=== PATIENT | female | born 1940 | race Caucasian/White ===

== ENCOUNTER 2021-08-24 04:41 | Inpatient (IN) | payer OTHER ==
[2021-08-24] VITALS (47 sets, daily range): BP systolic 42–143; BP diastolic 25–73
[~2021-08-24] VITALS: Ht 167.6 cm; Wt 125.0 kg
--- NOTE | ~2021-08-24 | EMS ---
[address] [address] EMS Patient Care Report Name: GISSELLE STANLEY Room #: 245-P ADM IN M.R.#: [id number] Admission: 08/24/21 Attend Phys: Ernestina Roberts MD Discharge: Date of : 42 Report #: [id number] THIS REPORT FOR: //name// Report Transmitted: 08/27/2021 12:34 EMS Care Summary [place], [place]/[facility] Incident [id number] @ 08/24/2021 04:04 Incident Location [address] [place] [address] Patient GISSELLE STANLEY Female, 81 Years 1940 Patient Address [address] [place], [place] [id number] Patient History Hypertension (HTN),Anemia,Chronic Respiratory Failure, Patient Allergies No known allergies, Patient Medications Sertraline, Januvia, Cholecalciferol, Baclofen, Tylenol, Eliquis, Miralax, Tramadol, Chief Complaint Vomiting Blood Disposition Transported Lights/[place] Dispatch Reason Hemorrhage/Laceration Transported To [facility] Narrative Nurse at care center stated they were doing rounds and found Pt in bed with black tarry vomit and blood clots on Pt hospital gown , face lips and hands [address] [address] EMS Patient Care Report Name: GISSELLE STANLEY Room #: 245-P [facility] IN M.R.#: [id number] Admission: 08/24/21 Attend Phys: Ernestina Roberts MD Discharge: Date of : 42 Report #: [id number] which started around 0300. Nurse stated that Pt is a GCS 15 but now Pt is a GCS 08. Nurse denied any issues with Pt prior to going to bed and Pt had no signs of distress noted either. Pt is a GCS 08 and is not alert. Pt found laying in bed with black vomit around Pt lips , under fingernails and Pt is with a very bad odor coming from Pt mouth. Pt is with pale, wet and cool skin ,and with a GCS 08 which Pt is normally a GCS per Nurse. EMS is unable to get a I,V on Pt and Pt placed in shock position due to low blood pressure. Pt is with abdominal extension and pain , firmness and guarding noted in all 4 quad area of abdominal area Pt had no other vomiting of blood during transport to ER and Pt is with no other changes noted on eval by EMS. Pt received by RN in ER. Initial Vitals @04:13P: 118,R: 22,BP: 62/41,Pain: 10/10,GCS: 8,Glucose: 110,SpO2: 88,Revised Trauma: 8, @04:23P: 116,R: 22,BP: 68/41,Pain: 10/10,GCS: 8,SpO2: 100,Revised Trauma: 8, @04:30P: 118,R: 20,BP: 71/43,Pain: 10/10,GCS: 8,SpO2: 100,Revised Trauma: 8, Assessments @04:11MENTAL:Confused,Combative,Hallucinations,SKIN:Diaphoresis,Cold,Pale,HEENT: Eyes: Right: Constricted,Eyes: Left: Constricted,Head/Face: No Abnormalities,Neck/Airway: No Abnormalities,LUNG SOUNDS:Right Lower: Tenderness,Right Lower: Guarding,Left Lower: Guarding,Right Lower: Distension,Left Lower: Distension,Left Lower: Tenderness,Right Upper: Tenderness,General: Other,Left Upper: Guarding,Left Upper: Tenderness,Left Upper: Distension,Right Upper: Guarding,Right Upper: Distension,General: Vomiting,General: Nausea,ABDOMEN:Right Lower: Tenderness,Right Lower: Guarding,Left Lower: Guarding,Right Lower: Distension,Left Lower: Distension,Left Lower: Tenderness,Right Upper: Tenderness,General: Other,Left Upper: Guarding,Left Upper: Tenderness,Left Upper: Distension,Right Upper: Guarding,Right Upper: Distension,General: Vomiting,General: Nausea,PELVIS//GI:No Abnormalities,EXTREMITIES:Capillary Refill: Right Upper: 4 Sec,Left Arm: No Abnormalities,Right Arm: No Abnormalities,Left Leg: No Abnormalities,Right Leg: No Abnormalities,PULSE:Radial: 1+ Thready,NEURO:No Abnormalities,@04:35MENTAL:Confused,Combative,SKIN:Cold,Pale,Diaphoresis,HEENT:E yes: Right: Constricted,Eyes: Left: Constricted,Head/Face: No Abnormalities,Neck/Airway: No Abnormalities,LUNG SOUNDS:General: Nausea,General: Vomiting,Left Upper: Tenderness,Right Upper: Tenderness,Left Upper: Distension,Right Upper: Distension,Left Upper: Guarding,Right Upper: Guarding,Right Lower: Guarding,Right Lower: Distension,Left Lower: Guarding,Left Lower: Distension,Left Lower: Tenderness,Right Lower: Tenderness,ABDOMEN:General: Nausea,General: Vomiting,Left Upper: [facility] [address] [place] [address] EMS Patient Care Report Name: GISSELLE STANLEY Room #: 245-P ADM IN M.R.#: [id number] Admission: 08/24/21 Attend Phys: Ernestina Roberts MD Discharge: Date of : 42 Report #: [id number] Tenderness,Right Upper: Tenderness,Left Upper: Distension,Right Upper: Distension,Left Upper: Guarding,Right Upper: Guarding,Right Lower: Guarding,Right Lower: Distension,Left Lower: Guarding,Left Lower: Distension,Left Lower: Tenderness,Right Lower: Tenderness,PELVIS//GI:No Abnormalities,EXTREMITIES:Capillary Refill: Left Upper: 4 Sec,Left Arm: No Abnormalities,Right Arm: No Abnormalities,Left Leg: No Abnormalities,Right Leg: No Abnormalities,PULSE:Radial: 1+ Thready,NEURO:No Abnormalities, Impression Abdominal Pain Procedures @04:11ALS AssessmentResponse: UnchangedSucceeded@04:13Oxygen FlowRate: 15 Device: Nasal Cannula (NC) Response: UnchangedSucceeded@04:143-Lead ECGResponse: UnchangedSucceeded@04:15TrendelenburgResponse: UnchangedSucceeded@04:19Normal Saline (.9% NaCl) 0cc (18 ga) Site: Antecubital-LeftResponse: UnchangedFailed@04:25Normal Saline (.9% NaCl) 0cc (20 ga) Site: Hand-RightResponse: UnchangedFailed@04:23General CommentsResponse: Unchanged Timeline 04:02,Call Received 04:02,Dispatch Notified 04:04,Dispatched 04:04,En Route 04:09,On Scene 04:11,At Patient 04:11,ALS Assessment,Response: UnchangedSucceeded, 04:13,Oxygen FlowRate: 15 Device: Nasal Cannula (NC) Response: UnchangedSucceeded, 04:13,BP: 62/41 M,PULSE: 118,RR: 22 R,SPO2: 88 Ox,ETCO2: ,B,PAIN: 10,GCS: 8, 04:14,3-Lead ECG,Response: UnchangedSucceeded, 04:15,Trendelenburg,Response: UnchangedSucceeded, 04:19,Normal Saline (.9% NaCl) 0cc 18 ga Site: Antecubital-Left,Response: UnchangedFailed, 04:23,General Comments,Response: Unchanged 04:23,BP: 68/41 M,PULSE: 116,RR: 22 R,SPO2: 100 Ox,ETCO2: ,BG: ,PAIN: 10,GCS: 8, 04:25,Normal Saline (.9% NaCl) 0cc 20 ga Site: Hand-Right,Response: UnchangedFailed, 04:29,Depart Scene 04:30,BP: 71/43 M,PULSE: 118,RR: 20 R,SPO2: 100 Ox,ETCO2: ,BG: ,PAIN: 10,GCS: 8, 04:36,At Destination 04:53,Call Closed [facility] [address] [place] [address] EMS Patient Care Report Name: GISSELLE STANLEY Room #: 245-P [facility] IN M.R.#: [id number] Admission: 08/24/21 Attend Phys: Ernestina Roberts MD Discharge: Date of : 42 Report #: [id number] Disclaimer [email or web address] Copyright 2020 [employer] This EMS Care Summary contains data elements from the applicable legal record (which may be displayed differently). It is designed to provide pertinent information for the following purposes: continuity of care, clinical quality, and state data reporting. The complete legal record is available to ED staff and administrators of the receiving hospital in [employer] Patient Tracker. All data is provided "as is."
[2021-08-24 05:28] LABS: PLATELET COUNT 184 thou/uL (150-400)
[2021-08-24 05:29] LABS: MCH 29.5 pg (26.0-34.0); MCHC 32.5 g/dL (28.0-37.0); MCV 90.5 fL (80.0-100.0); RDW 19.8 % (10.5-14.5); WBC 23.8 thou/uL (4.0-11.0)
[2021-08-24] MEDS ORDERED: LAC-HYDRIN FIV226 GM (05:30)
[2021-08-24 05:31] LABS: HEMOGLOBIN 4.4 gm/dL (12.0-15.0)
[2021-08-24 05:32] LABS: HEMATOCRIT 13.6 % (37.0-47.0)
[2021-08-24] MEDS ORDERED: BACLOFEN5 MG PO (05:34)
[2021-08-24] MEDS ORDERED: D3-501250 MCG PO (05:35)
[2021-08-24] MEDS ORDERED: ELIQUIS5 MG PO (05:37)
[2021-08-24 05:46] LABS: ALBUMIN 1.4 g/dL (3.4-5.0); CALCIUM 7.5 mg/dL (8.5-10.1); CREATININE 1.5 mg/dL (0.6-1.0); POTASSIUM 5.1 mmol/L (3.5-5.1); TOTAL BILIRUBIN 0.3 mg/dL (0.2-1.0)
[2021-08-24] MEDS ORDERED: VITAMIN D250 MCG PO (05:50)
[2021-08-24] MEDS ORDERED: JUVEN PACKET1 EAC1 PO (05:51)
[2021-08-24 05:52] LABS: APTT 24.2 Seconds (24.5-32.8); INR 1.41; PROTIME 15.1 Seconds (10.5-12.1)
[2021-08-24 06:46] LABS: BE(vivo) -12.3 mmol/L (-2 to +3); HCO3 12.4 mmol/L (22.0-26.0); PO2 115.9 mmHg (80.0-100.0); pH 7.347 (7.360-7.450); sO2 98.1 % (92.0-98.0)
[2021-08-24 06:47] LABS: PCO2 23.1 mmHg (35.0-45.0)
--- NOTE | 2021-08-24 07:30 | NUR ---
MADE MULTIPLE ATTEMPTS TO CALL PATIENTS FACILITY TO OBTAIN A CODE STATUS, THE LINE WAS BUSY ON ALL 8 PHONE CALLS. UNABLE TO GET IN TOUCH WITH FACILITY, LOCATED PATIENTS CODE STATUS IN PAPERWORK, NO OTHER SIGNIFICANT MEDICAL HISTORY NOTED.
--- NOTE | 2021-08-24 07:35 | EKG ---
[address] [address] ELECTROCARDIOGRAM REPORT Name: GISSELLE STANLEY Room #: REG SETH Solis#: [id number] Admission: 08/24/21 Attend Phys: Discharge: Date of : 42 Report #: [id number] [facility] ED Test Date: 2021-08-24 Test Time: 04:57:20 Pat Name: GISSELLE STANLEY Department: Room: Gender: F Electrician Aircraft: TANYA : 1940 Requested By: Mango Brown Order Number: [id number] MD: Neymar Munoz Measurements Intervals [place] Rate: 106 P: TX: QRS: 17 QRSD: 97 T: 106 QT: 353 QTc: 469 Interpretive Statements Artfact, NSR Nonspecific repol abnormality, diffuse leads No previous ECG available for comparison Electronically Signed On 08-24-2021 7:35:15 CDT by Neymar Munoz [email or web address] <ELECTRONICALLY SIGNED> By: Neymar Munoz MD, [facility] 08/24/21 0735 [id number] Neymar Munoz MD, FACC /EPI
[2021-08-24 08:57] LABS: URINE BILIRUBIN NEGATIVE (Negative); URINE BLOOD 1+ (Negative); URINE CLARITY CLOUDY; URINE COLOR YELLOW; URINE GLUCOSE-RANDOM* NEGATIVE (Negative); URINE KETONES NEGATIVE (Negative); URINE LEUKOCYTES-REFLEX NEGATIVE (Negative); URINE NITRITE-REFLEX NEGATIVE (Negative); URINE PROTEIN (DIPSTICK) NEGATIVE (Negative); URINE SPECIFIC GRAVITY >= 1.030 (1.005-1.035); URINE UROBILINOGEN 0.2 E.U./dl (0.2-1.0)
[2021-08-24 09:15] LABS: BASOPHILS 0.9 % (0.0-2.0); HEMATOCRIT 32.4 % (37.0-47.0); RDW 15.3 % (10.5-14.5)
[2021-08-24 09:15] LABS: BACTERIA-REFLEX 1-9 Few /HPF (None Seen); CASTS None Seen /LPF (None Seen); CRYSTALS None Seen /LPF (None Seen); SQUAMOUS >10 Many /LPF (0-3); URINE RBC 3-10 Few /HPF (NONE SEEN); URINE WBC-REFLEX 6-15 Few /HPF (0-5)
[2021-08-24 09:17] LABS: ABSOLUTE NEUTROPHILS 15.9 thou/uL (1.4-8.2); EOSINOPHILS 0.2 % (0.0-3.0); MCH 30.1 pg (26.0-34.0); MCV 91.2 fL (80.0-100.0); MONOCYTES 6.2 % (1.0-8.0); PLATELET COUNT 134 thou/uL (150-400); POLYS 77.7 % (36.0-66.0); RBC 3.55 mil/uL (4.20-5.00); WBC 20.4 thou/uL (4.0-11.0)
[2021-08-24 09:24] LABS: HEMOGLOBIN 10.7 gm/dL (12.0-15.0)
[2021-08-24 09:40] LABS: ABSOLUTE NEUTROPHILS 17.4 thou/uL (1.4-8.2); ANISOCYTOSIS 2+; METAMYELOCYTES 3 %; MYELOCYTES 1 %; NUCLEATED RBCS 9 /100WBC; PLATELET ESTIMATE NORMAL
[2021-08-24 09:48] LABS: POLYCHROMASIA 1+
--- NOTE | 2021-08-24 10:46 | NUR ---
ETOMIDATE 25MG GIVEN IV @ 1044 SUCCS 100MG GIVEN IV @ 1045 ETTUBE 7.0 PLACED 25 @ TEETH @1046
--- NOTE | 2021-08-24 12:15 | NUR ---
DR. CAMPA (GI) WAS ABLE TO GET INTO CONTACT WITH LIONEL GRAY PT DPOA TO GO OVER CARE PLAN AND OBTAIN CONSTENT FOR EGD. DURING THIS CONVERSATION IT WAS NOTED THAT PT IS A JEHOVAHS WITNESS THEREFORE BLOOD PRODUCTS ARE AGAINST HER WISHES. AT THIS TIME PT HAD ALREADY RECEIVED X4 UNITS FOR LIFE SAVING INTERVENTION PT HEMO WAS 4.4 UPON ARRIVAL AND PT WAS ALERT BUT NOT ABLE TO EXPRESS WISHES REGARDING BLOOD PRODUCTS AND OR CHRISTIANITY BELIEFS. ATTEMPTS TO CALL SNF MULTIPLE TIMES FOR FURTHER INFORMATION WAS UNSUCCESSFUL. AT THIS TIME PER ED PROVIDERS DR. VALLADARES AND DR. BARRERA CONSENT WAS DUAL SIGNED AND BLOOD ADMINISTERED AGAIN PRIORLY STATED FOR LIFE SAVING INTERVENTION. PT DPOA VERBALIZED UNDERSTANDING. PT WILL NOT RECEIVE ANYMORE BLOOD PRODUCTS NOW THAT WISHES ARE KNOWN. ED PROVIDER HAS ALSO SPOKEN WITH PT DAUGHTER AND HAS EXPLAINED PT CONDITION UPON ARRIVAL AND CARE PLAN THAT WAS TAKEN FOR LIFE SAVING INTERVENTION INCLUDING THE ADMINISTRATION OF BLOOD PRODUCTS. PT DAUGHTER ALSO VERBALIZED UNDERSTANDING. ED PROVIDER EXPLAINED THAT NO MORE BLOOD PRODUCTS WOULD BE GIVEN NOW THAT WISHES ARE KNOWN, PT DAUGHTER VERBALIZED UNDERSTANDING. PT DAUGHTER ENCOURAGED TO CALL WITH ANY CONCERNS OR QUESTIONS. PT DAUGHTER AWARE OF SCHEDULED EGD PT DAUGHTER NOTED SHE WILL COME TO ICU AFTER PROCEDURE.
[2021-08-24 12:18] LABS: HEMATOCRIT 33.5 % (37.0-47.0); HEMOGLOBIN 11.2 gm/dL (12.0-15.0)
[2021-08-24 12:18] LABS: HCO3 18.8 mmol/L (22.0-26.0); PCO2 38.5 mmHg (35.0-45.0); PO2 132.1 mmHg (80.0-100.0); sO2 98.4 % (92.0-98.0)
[2021-08-24 12:19] LABS: pH 7.306 (7.360-7.450)
--- NOTE | 2021-08-24 13:26 | NUR ---
DR JUD CAMPA- [phone]
--- NOTE | 2021-08-24 17:14 | NUR ---
PATIENT SLOWLY PROGRESSING TOWARDS THE PLAN OF CARE EVIDENCED BY DECREASED OXYGENATION NEEDS. EGD DONE AND RESULTS RELAYED TO LIONEL GRAY ([facility]) BY DR. CAMPA. LIONEL GRAY WAS TOLD ABOUT VISITOR POLICY AND POLICY REGARDING GIVING INFORMATION OVER THE PHONE.
[2021-08-25] VITALS (101 sets, daily range): BP systolic 70–139; BP diastolic 19–52
--- NOTE | 2021-08-25 07:00 | NUR ---
Oxygenation optimal with current vent settings, sats 100%.
--- NOTE | 2021-08-25 07:00 | NUR ---
Assumed patient care at 1900. Patient sedated on the vent. Progressing slowly towards outcome goals. Fentanyl and Versed for sedation. Levo at 30 mcg/min quadruple strength. BP map 50-55, SBP upper 80's- 110's. NS 500 cc fluid bolus x 2. Urine output 475. OG LIS 50 cc dark red drainage. Bed in lateral rotation. Blood culture growing gram + cocci, reported to Sierra Zavala SOAP DRIER OPERATOR, no new orders. No bowel movement.
[2021-08-25 09:29] LABS: HEMATOCRIT 23.1 % (37.0-47.0); MCH 30.4 pg (26.0-34.0); MCV 89.4 fL (80.0-100.0); RBC 2.59 mil/uL (4.20-5.00); WBC 16.9 thou/uL (4.0-11.0)
[2021-08-25 09:37] LABS: HEMOGLOBIN 7.9 gm/dL (12.0-15.0)
[2021-08-25 09:39] LABS: CALCIUM 6.5 mg/dL (8.5-10.1); CREATININE 1.1 mg/dL (0.6-1.0); POTASSIUM 3.4 mmol/L (3.5-5.1)
--- NOTE | 2021-08-25 12:59 | NUR ---
A #6F TRIPLE LUMEN CENTRAL LINE WAS PLACED AFTER A BEDSIDE TIMEOUT WAS COMPLETED PER POLICY. THE 25CM LINE WAS ADVANCED TO 6CM EXTERNAL WITHOUT DIFFICULTY. A STAT CHEST XRAY WAS ORDERED FOR LINE CONFIRMATION.
[2021-08-25 14:01] LABS: HEMATOCRIT 22.7 % (37.0-47.0); HEMOGLOBIN 7.5 gm/dL (12.0-15.0)
--- NOTE | 2021-08-25 20:29 | NUR ---
PT IS NOT PROGRESSING TOWARDS THE PLAN OF CARE EVIDENCED BY CONTINUED DEPENDENCE ON VENTILATOR SUPPORT THIS RN SPOKE TO LIONEL GRAY FROM 1708 - 171 AND UPDATED HIM ON THE PT'S CONDITIONS AND PLAN OF CARE. FAMILY WANTS NO BLOOD PRODUCTS RELATED TO RELEGION. DR. LI SPOKE TO FAMILY ABOUT BENEFITS AND RISK OF NOT RECEIVING BLOOD AND ABOUT THE PATIENTS CONDITIONS PER HER REPORT.
[2021-08-26] VITALS (80 sets, daily range): BP systolic 81–151; BP diastolic 29–59
[2021-08-26 04:56] LABS: ALBUMIN 1.7 g/dL (3.4-5.0); CALCIUM 6.4 mg/dL (8.5-10.1); CREATININE 1.1 mg/dL (0.6-1.0); POTASSIUM 3.6 mmol/L (3.5-5.1); TOTAL BILIRUBIN 0.6 mg/dL (0.2-1.0); TOTAL PROTEIN 4.2 g/dL (6.4-8.2)
[2021-08-26 05:15] LABS: ABSOLUTE NEUTROPHILS 10.7 thou/uL (1.4-8.2); BASOPHILS 0.7 % (0.0-2.0); EOSINOPHILS 0.7 % (0.0-3.0); HEMATOCRIT 21.4 % (37.0-47.0); HEMOGLOBIN 7.2 gm/dL (12.0-15.0); LYMPHOCYTES 19.5 % (24.0-44.0); MCH 30.6 pg (26.0-34.0); MCHC 33.7 g/dL (28.0-37.0); MONOCYTES 5.2 % (1.0-8.0); PLATELET COUNT 81 thou/uL (150-400); POLYS 73.9 % (36.0-66.0); RBC 2.35 mil/uL (4.20-5.00); RDW 16.1 % (10.5-14.5); WBC 14.4 thou/uL (4.0-11.0)
[2021-08-26 05:19] LABS: BE(vivo) -10.7 mmol/L (-2 to +3); PCO2 32.7 mmHg (35.0-45.0); PO2 107.7 mmHg (80.0-100.0); sO2 97.4 % (92.0-98.0)
--- NOTE | 2021-08-26 08:16 | NUR ---
RN SPOKE W/ THIS MORNING REGARDING PROGRESS OF THE PT, PT'S HEMOGLOBIN LEVEL DECREASING AT THIS TIME 7.5 > 7.2, NO APPARENT CHANGE IN OG TUBE DRAINAGE, WELL BM. FURTHER EVALUATE HEMOGLOBIN LEVEL AT 1500 THIS AFTERNOON. IF NEEDED BE, EGD WILL FOLLOW BUT NO INDICATION AT THIS TIME PER , PROTONIX GTT TO CONTINUE FOR NOW, RN CONTINUING TO MONITOR. VASOPRESSIN INCREASED FROM 0.02 TO 0.04, LEVO QUAD RUNNIGN AT FULL THROTTLE.
[2021-08-26 14:43] LABS: HEMATOCRIT 20.8 % (37.0-47.0); HEMOGLOBIN 7.1 gm/dL (12.0-15.0)
--- NOTE | 2021-08-26 19:33 | NUR ---
PT IS NOT PROGRESSING TO THE PLAN OF CARE EVIDENCED BY CONTINOUS DEPENDENCE ON VENTILATOR FOR O2 SUPPORT.
[2021-08-27] VITALS (79 sets, daily range): BP systolic 59–165; BP diastolic 28–63
--- NOTE | 2021-08-27 01:14 | NUR ---
ASSUMED CARE AT 2300. OFF-GOING RN ASSISTED TO TURN AND CLEAN UP PT, SMALL TARRY BLACK STOOL NOTED; CONTINUES TO HAVE TARRY BLACK OUPTUT FROM OGT. CONTINUES ON LEVO, VASO, PROTONIX, VERSED, AND FENTANYL GTTs. NO OTHER CONCERNS NOTED AT THIS TIME.
[2021-08-27 04:04] LABS: BE(vivo) -6.2 mmol/L (-2 to +3); HCO3 19.3 mmol/L (22.0-26.0); PCO2 37.9 mmHg (35.0-45.0); PO2 108.8 mmHg (80.0-100.0); sO2 97.7 % (92.0-98.0)
[2021-08-27 05:27] LABS: ABSOLUTE NEUTROPHILS 7.1 thou/uL (1.4-8.2); BASOPHILS 0.5 % (0.0-2.0); EOSINOPHILS 0.4 % (0.0-3.0); HEMATOCRIT 20.1 % (37.0-47.0); LYMPHOCYTES 18.2 % (24.0-44.0); MCH 31.4 pg (26.0-34.0); MCHC 34.5 g/dL (28.0-37.0); MONOCYTES 5.4 % (1.0-8.0); PLATELET COUNT 61 thou/uL (150-400); POLYS 75.5 % (36.0-66.0); RBC 2.21 mil/uL (4.20-5.00); RDW 16.1 % (10.5-14.5); WBC 9.4 thou/uL (4.0-11.0)
[2021-08-27 05:52] LABS: ALBUMIN 1.6 g/dL (3.4-5.0); CALCIUM 6.3 mg/dL (8.5-10.1); CREATININE 0.9 mg/dL (0.6-1.0); POTASSIUM 3.2 mmol/L (3.5-5.1); TOTAL BILIRUBIN 0.7 mg/dL (0.2-1.0)
--- NOTE | 2021-08-27 14:35 | NUR ---
PATIENT'S DPOA/FRIEND, LIONEL GRAY, WAS SPOKEN TO FROM [id number] AND HE WAS UPDATED AND EDUCATED ON THE PATIENT'S CONDITION AND PLAN OF CARE.
--- NOTE | 2021-08-27 14:54 | NUR ---
Case opened to follow for dc planning. Pt is currently in ICU on the vent. She was admitted with acute GI bleed and respiratory failure from fdc care at [facility]. The pt's dpoa for hc is her friend Terrence Dominguez. He has provided a copy of her health care directive and dpoa document which indicates her orthodox status and directive for no blood products. She is a DNR per discussion between Terrence and the attending. Terrence requested that pt's dtr Rosario and son Fabiano be on the spokespersons list. They were here to see her this weekend. He would like to talk with the attending about her prognosis and her wishes not to be kept alive on life support. He is updated her children daily. [facility] July and was not able to return home. He reports she had been declining over the past year and needing more care. [facility] is holding her bed. Clinical update faxed. She is medicaid pending there for ltc as her [employer] stopped paying for rehab. Support provided and cm role introduced. Message sent to the attending with request to call her DPOA regarding her prognosis.
[2021-08-28] VITALS (36 sets, daily range): BP systolic 104–144; BP diastolic 23–57
[2021-08-28 05:33] LABS: MCH 30.9 pg (26.0-34.0); MCHC 33.4 g/dL (28.0-37.0); MCV 92.3 fL (80.0-100.0); RBC 2.27 mil/uL (4.20-5.00); RDW 17.2 % (10.5-14.5); WBC 7.6 thou/uL (4.0-11.0)
--- NOTE | 2021-08-28 06:00 | NUR ---
REMAINS INTUBATED AND SEDATED WITH FENTANYL LEVOPHED AND VASO FOR BP SUPPORT. PROTONIX GTT PT [id number] A DNR. NONRESPONSIVE. NOT PROGRESSING TOWARD GOALS.
[2021-08-28 06:13] LABS: CALCIUM 6.4 mg/dL (8.5-10.1); CREATININE 0.8 mg/dL (0.6-1.0); POTASSIUM 3.4 mmol/L (3.5-5.1)
--- NOTE | 2021-08-28 09:13 | NUR ---
ANA LAURA Ocampo called letting Rn know that family has decided to "take patient off of life support". ANA LAURA also told RN pt daughter wanted to be present for extubation. RN called Dr Radford and he gave a morphine drip order for dyspnea, anxiety, distress. Rn called patient's daughter, she will be here at 1100. Will continue to monitor.
--- NOTE | 2021-08-28 11:20 | NUR ---
DAUGHTER AT BEDSIDE. PALLIATIVE EXTUBATED AT 1115. PT SATTING 91 ON 2L/NC. MTN CONTACTED BEFORE EXTUBATION. ALL DRIPS TURNED OFF POST EXTUBATION. MORPHINE STARTED.
--- NOTE | 2021-08-28 22:43 | NUR ---
PATIENT OBSERVED TAKING AGONAL RESPIRATIONS AND ASYSTOLE. TWO RN VERIFICATION INITIATED AND TIME OF 2242. PT FAMILY NOTIFIED, DAUGHTER ELEANOR PRESENT AT BEDSIDE. PERTINENT HOME AND POST MORTEM INFORMATION OBTAINED. NO PT BELONGINGS NOTED. PER MTN, PT IS A CANDIDATE FOR EYE AND TISSUE DONATION AND RELEASE TO HOME IS ON HOLD UNTIL CASE CONCLUDED.
== END 2021-08-28 22:43 | DRG 208 ==
LOC: ER 04:41 → ICU 10:24 → EROBS 10:24 → ICU 14:11
PROVIDERS: Emergency Medicine; Internal Medicine Gastroenterology; Pediatrics; ADMIT Hospitalist; ATTEND Hospitalist
PROC: 2W0LX6Z Change Pressure Dressing on Right Lower Extremity (ICD-10-PCS; principal; 2021-08-24)
PROC: 0W3P8ZZ Control Bleeding in Gastrointestinal Tract, Via Natural or Artificial Opening Endoscopic (ICD-10-PCS; principal; 2021-08-24)
PROC: 02HV33Z Insertion of Infusion Device into Superior Vena Cava, Percutaneous Approach (ICD-10-PCS; principal; 2021-08-24)
PROC: 30233N1 Transfusion of Nonautologous Red Blood Cells into Peripheral Vein, Percutaneous Approach (ICD-10-PCS; principal; 2021-08-24)
PROC: 5A1945Z Respiratory Ventilation, 24-96 Consecutive Hours (ICD-10-PCS; principal; 2021-08-24)
DX: J96.21 Acute and chronic respiratory failure with hypoxia (principal); G93.41 Metabolic encephalopathy; E43 Unspecified severe protein-calorie malnutrition; K57.31 Diverticulosis of large intestine without perforation or abscess with bleeding; K26.4 Chronic or unspecified duodenal ulcer with hemorrhage; K92.0 Hematemesis; N17.9 Acute kidney failure, unspecified; E87.2 Acidosis; R57.8 Other shock; I48.91 Unspecified atrial fibrillation; N18.9 Chronic kidney disease, unspecified; R53.81 Other malaise; F32.9 Major depressive disorder, single episode, unspecified; I89.0 Lymphedema, not elsewhere classified; D69.6 Thrombocytopenia, unspecified; D50.0 Iron deficiency anemia secondary to blood loss (chronic); E11.22 Type 2 diabetes mellitus with diabetic chronic kidney disease; E87.6 Hypokalemia; Z66 Do not resuscitate; I46.9 Cardiac arrest, cause unspecified; Z51.5 Encounter for palliative care; Z86.16 Personal history of COVID-19; Z79.01 Long term (current) use of anticoagulants
CPT/HCPCS: 10078